=== PATIENT | male | born 1970 | race Caucasian/White ===

== ENCOUNTER 2020-03-14 12:24 | Emergency (ER) | payer OTHER ==
[~2020-03-14] VITALS: Ht 188 cm; Wt 90.0 kg
[2020-03-14] MEDS ORDERED: LIDOCAINE 1%/EPI 1:100,000 20 ML VIAL. SQ ONE (13:00)
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
[2020-03-14 13:58] VITALS: BP 148/93
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
[2020-03-14] MEDS ORDERED: HYDROcodone/APAP 5/325MG 1 TAB TABLET PO ONE (16:00)
[2020-03-14] MEDS ORDERED: HYDR-2761 PO (16:04)
== END 2020-03-14 16:55 | disposition home or self-care (01) ==
LOC: ER 12:24 → EEVIPCON 12:24 → ER 16:55
DX: S01.111A Laceration without foreign body of right eyelid and periocular area, initial encounter (principal); S42.412A Displaced simple supracondylar fracture without intercondylar fracture of left humerus, initial encounter for closed fracture; M54.2 Cervicalgia; Z87.891 Personal history of nicotine dependence; Y04.0XXA Assault by unarmed brawl or fight, initial encounter; Y93.89 Activity, other specified; Y92.89 Other specified places as the place of occurrence of the external cause; Y99.8 Other external cause status
CPT/HCPCS: 12011; 29125; 70450; 70486; 72125; 73110; 99285; J3490